=== PATIENT | male | born 1940 | race Caucasian/White ===

== ENCOUNTER 2016-08-31 10:01 | Emergency (ER) | payer MEDICARE, BC ==
--- NOTE | 2016-08-31 10:59 | ERNOTE ---
Lower Extremity HPI - Narrative Date of Service: 08/31/16 - General Lower Extremities Pain: knee: right - Patient with pain on the R knee area after a fall Time Seen by Provider: 08/31/16 10:34 Source: patient, family Exam Limitations: no limitations - Immun/Allergies/Home Medications Immunizations: IMMUNIZATION HX Immunizations Up to Date Yes History of Influenza Vaccine No Hx Pneumococcal Vaccination No Allergies/Adverse Reactions: Allergies Allergy/AdvReac Type Severity Reaction Status Date / Time No Known Allergies Allergy Verified 08/31/16 10:28 Home Medications: HOME MEDICATIONS Aspirin [Aspirin Chewable] 81 mg PO DAILY 03/08/15 [Last Taken 03/08/15] Folic Acid 1 mg PO DAILY 03/08/15 [Last Taken 03/08/15] Simvastatin [Zocor] 40 mg PO HS 03/08/15 [Last Taken 03/07/15] levETIRAcetam [Keppra] 500 mg PO BID 03/08/15 [Last Taken 03/08/15] Cholecalciferol (Vitamin D3) [Vitamin D3] 2,000 unit PO DAILY #90 capsule [Last Taken Unknown] - History of Present Illness Narrative: Patient felt due to mechanical process yesterday and hit his R side of the head and hurt his R knee area. Patient had no LOC reported at the moment and is not actively bleeding. Occurred: yesterday Location of Incident: home Method of Injury: Reports: fell, twisted. Denies: fainted Reason for Fall: Reports: tripped Loss of Consciousness: Reports: no loss of consciousness Modifying Factors - (Improves): Reports: rest Modifying Factors - (Worsens): Reports: movement Associated Symptoms: Denies: dizzy/light headedness, weakness, sensory loss, vomiting/diarrhea Other Injuries: Reports: head Subsequent Symptoms: Denies: sensory loss, numbness, motor loss, bowel/bladder problem Prior Treament: Denies: recently seen Review of Systems - Review of Systems Constitutional: Absent: fever, chills, diaphoresis, weakness, fatigue, malaise EYE: Present: no symptoms reported ENT: Present: no symptoms reported Respiratory: Absent: cough Cardiology: Absent: palpitations, syncope, edema Gastrointestinal/Abdominal: Present: no symptoms reported Genitourinary: Present: no symptoms reported Musculoskeletal: Present: muscle pain, joint pain - Patient with R knee pain Skin: Present: other - Patient reported a cut on the R eye area and a scratch on the R knee area Neurological: Absent: dizziness/light-headedness, seizure, weakness Endocrine: Present: no symptoms reported Hematologic/Lymphatic: Absent: easy bruising, easy bleeding Psych: Present: no symptoms reported - Patient's Past Medical History Patient History - Medical: Seizures Patient History - Cancer: No Hx of Cancer Patient History - Surgical Procedures: Pacemaker - Family History Father Family History - Cardiac/Respiratory: CVA/Stroke - Social History Living Situations: home Smoking Status: Current every day smoker Have you smoked in the past 12 months: Yes Alcohol Use: heavy Drug Use: none Physical Exam - Physical Exam General Appearance: Present: wd/wn, alert, no apparent distress Eye Exam: Normal inspection: bilateral, PERRL: bilateral, EOMI: bilateral Ears, Nose, Throat: Present: normal ENT inspection, hearing grossly normal Neck: Present: normal inspection, nontender Respiratory: Present: no respiratory distress, normal breath sounds, no accessory muscle use, chest nontender, lungs clear Cardiovascular/Chest: Present: regular rate, rhythm, no murmur, normal peripheral pulses Gastrointestinal/Abdominal: Present: normal bowel sounds, nontender, nondistended, soft, no organomegaly Back Exam: Present: normal inspection, normal range of motion, no CVA tenderness , no vertebral tenderness Extremity Exam: Present: no edema, normal range of motion, other - Patient with mild swelling on the R knee area. There is good pulse and ROM is preserve. There is a siple abrassion very superficial on the area. Patient with no pain on the ankle and on the hip area Neurological Exam: Present: alert, oriented, normal mood/affect, no motor/ sensory deficits Skin Exam: Present: normal color, warm/dry. Absent: cyanosis, jaundice, pallor , skin rash Lymphatic Exam: Present: no adenopathy ED Progress - Date and Time Seen: Date and Time: 08/31/16 11:42 Patient with no bleeding wounds that has been open over 12hrs. Patient with no Fx and with no intracranial pathology on CT. Patient at the moment has a GCS 15/ 15 and no gross neurologic deficit. Patient will be discharge home with OTC medications. - Vital Signs Patient's Vital Signs:: I have reviewed the patient's vital signs. Vital Signs: Vital Signs 08/31/16 10:26 Temperature 36.7 C Pulse Rate 72 Respiratory 14 Rate Blood Pressure 117/70 O2 Sat by Pulse 96 Oximetry - X-Ray X-Ray #1 X-Ray: pelvis X-ray Comments: No Fx reported by Radiologist X-Ray #2 X-Ray: knee X-ray Comments: No Fx was reported by Radiologist - CT/Ultrasound CT/Ultrasound Narrative: No acute changes were reported by Radiologist - Progress/Reassessment Chief Complaint: Lower Extremity Pain/ Injury Progress:: Re-examined - Transfer of Care Expected Disposition: Discharge Departure Clinical Impression: Abrasion Fall Qualifiers: Encounter type: initial encounter Qualified Code(s): W19.XXXA - Unspecified fall, initial encounter Head injury Qualifiers: Encounter type: initial encounter Qualified Code(s): S09.90XA - Unspecified injury of head, initial encounter Knee pain Qualifiers: Laterality: right Chronicity: acute Qualified Code(s): M25.561 - Pain in right knee - Departure Disposition: Home self-care Condition: Stable Instructions: Head Injury, Adult, [id number], Abrasion, [id number], Fall Prevention in the Home Additional Instructions: You can use Tylenol 650mg PO every 8 hours if you develop pain. Referrals: Junay Mendosa MD [Primary Care Provider] -
[2016-08-31 11:29] VITALS: BP 134/88
== END 2016-08-31 11:50 | disposition home or self-care (01) ==
LOC: ER 10:01
DX: S80.211A Abrasion, right knee, initial encounter (principal); M25.561 Pain in right knee; S09.90XA Unspecified injury of head, initial encounter; F17.210 Nicotine dependence, cigarettes, uncomplicated; Z95.0 Presence of cardiac pacemaker; R56.9 Unspecified convulsions; W01.0XXA Fall on same level from slipping, tripping and stumbling without subsequent striking against object, initial encounter; Y92.009 Unspecified place in unspecified non-institutional (private) residence as the place of occurrence of the external cause

== ENCOUNTER 2019-07-15 19:15 | Inpatient (IN) ==
--- NOTE | 2019-07-15 19:37 | ERNOTE ---
<Ren Tran - Last Filed: 07/15/19 19:45> Medical Problem HPI - Narrative Date of Service: 07/15/19 - General Chief Complaint: Fall Time Seen by Provider: 07/15/19 19:45 Source: EMS Exam Limitations: clinical condition - Immun/Allergies/Home Medications Immunizations: IMMUNIZATION HX Immunizations Up to Date Yes History of Influenza Vaccine No Hx Pneumococcal Vaccination No Allergies/Adverse Reactions: Allergies No Known Allergies Allergy (Verified 08/31/16 10:28) Home Medications: HOME MEDICATIONS Aspirin [Aspirin Chewable] 81 mg PO DAILY 03/08/15 [Last Taken 03/08/15] Cholecalciferol (Vitamin D3) [Vitamin D3] 2,000 unit PO DAILY #90 capsule 03/10/15 [Last Taken Unknown] folic acid 1 mg tablet 1 mg PO DAILY #90 tab 04/12/18 [Last Taken Unknown] levetiracetam 500 mg tablet 500 mg PO BID #180 tab 04/12/18 [Last Taken Unknown] simvastatin 40 mg tablet 40 mg PO HS #90 tab 04/23/18 [Last Taken Unknown] - History of Present History Narrative: patient presents to the ED via EMS. He is unable to provide history and no history is available otherwise, no family here. Apparently he had been lying in bed for 6 weeks in the same position. Family found him and EMS called. He will tell out in pain but otherwise cannot answer any questions. No other history can be obtained at this time Timing: unsure Modifying Factors - (Improves): Present: other - unknown Modifying Factors - (Worsens): Present: other - unknown Review of Systems - Narrative Narrative: unable to obtain, patient cannot provide d/t condition Social History: (Last Reviewed 07/15/19 @ 19:33 by Ren Tran MD) Tobacco: Smoking Status: Current every day smoker Physical Exam - Physical Exam General Appearance: Present: other - emacited, cachectic, in position. Yells out with any palpation. Head Exam: Present: no evidence of injury Eye Exam: Other: bilateral - no icterus Ears, Nose, Throat: Present: dry mucous membranes Neck: Present: other - trachea midline Respiratory: Present: no respiratory distress, other - mild tachypnea Cardiovascular/Chest: Present: tachycardia Gastrointestinal/Abdominal: Present: nondistended, other - no rigidy, difficult exam Back Exam: Present: other - no stepoffs Extremity Exam: Present: other - He has necrotic area right hip. His right arm has been in a position with skin breakdown and swelling. Redness also. Dependen areas of skin breakdown. Please refer to nursing note for full skin documantation as he has sevre changes of pressure wounds and immobility. Neurological Exam: Present: other - he sems very contracted into the position. No clear acute unilateral motor deficits but difficult exam. Skin Exam: Present: other - see above. Progress - Results and Orders Patient's Lab Results:: I have reviewed the patient's lab results. - Vital Signs Patient's Vital Signs:: I have reviewed the patient's vital signs. - Progress/Reassessment Progress Note-Subjective: 07/15/19 19:42 I saw the patient and asked nursing to notify [facility]. He has severe skin changes, confusion and immobilization. No Hx available from him and no famiy here. will initiate testing and treatment pending family arrival. No recent history available from a hospital standpoint. Turned over to Dr Goodrich at shift change with no testing returned (No labs/EKG/Images). Please see note. - Transfer of Care Physician Sign Out: Ren Tran Receiving Physician: Chato Goodrich Pending Results: Labs, X-ray results Expected Disposition: Admit Departure Clinical Impression: Confusion, Prolonged immobilization, Cachectic Pressure sore Qualifiers: Pressure injury location: contiguous region involving buttock and hip Pressure injury stage: unstageable Laterality: unspecified laterality Qualified Code(s): L89.45 - Pressure ulcer of contiguous site of back, buttock and hip, unstageable Rhabdomyolysis Qualifiers: Rhabdomyolysis type: non-traumatic Qualified Code(s): M62.82 - Rhabdomyolysis Sepsis Qualifiers: Sepsis type: sepsis due to unspecified organism Sepsis acute organ dysfunction status: with acute organ dysfunction 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 He states that approximately 6 weeks ago the patient did fall and the son has been lifting him in and out of the wheelchair and in and out of bed. The patient over this time has become more contracted in his right arm and right leg than he had been previously. This right side has been nearly unusable for him for some time but not to the degree as it has been over the last 6 weeks. Son has been rotating him from side to side mostly once or maybe twice a day. Son states there is nothing specific that worsened today but that the family had been talking about possibly hospice and instead of consulting their primary care physician which he has not seen for a couple of years they instead called EMS to bring him to the ER Timing: getting worse Severity: moderate, severe Modifying Factors - (Improves): Present: immobilization Modifying Factors - (Worsens): Present: movement Review of Systems - Review of Systems Constitutional: Absent: recent illness Respiratory: Present: cough Cardiology: Absent: chest pain Gastrointestinal/Abdominal: Present: eating less, drinking less. Absent: vomiting Musculoskeletal: Present: See HPI, joint pain Skin: Present: See HPI, change in color Neurological: Present: weakness - Right arm and right. Leg right arm has been since a nerve transposition surgery many years ago. 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 Tran's exam above. I did try to move the right hip out of the flexed and abducted position but he did seem like there was some pain to that but also would not allow movement. Right arm also abducted and internally rotated and elbow mostly flexed and he also will not allow movement of that. We tried moving and positioning to try to get some x-rays and were unable to. We will try to get a CT and see if we can get any information out of that but that exam will also be difficult. Head Exam: Present: no evidence of injury Extremity Exam: Present: other Skin Exam: Present: other Progress - Results and Orders Patient's Lab Results:: I have reviewed the patient's lab results. Results and Orders: Laboratory Tests 07/15/19 07/15/19 07/15/19 20:57 20:57 20:57 WBC 21.9 H Hgb 9.2 L Hct 29.8 L Plt Count 284 Neutrophils % 85.2 H ESR PT INR (Anticoag Therapy) D-Dimer Sodium 130 L Potassium 5.0 H Chloride 99 BUN 18 Creatinine 0.81 Random Glucose 113 H Lactic Acid, Venous 6.9 H* Calcium 8.0 Total Bilirubin 0.4 AST 51 H ALT 15 L Alkaline Phosphatase 111 Creatine Kinase 521 H Troponin I Less than 0.017 C-Reactive Prot, Quant 20.2 H Urine Color Urine Appearance Urine pH Ur Specific [place] Urine Protein Urine Glucose (UA) Urine Ketones Urine Blood Urine Nitrate Urine Bilirubin Prot Sulfosalicylic Acd Urine Urobilinogen Ur Leukocyte Esterase Urine RBC Urine WBC Ur Epithelial Cells Amorphous Sediment Urine Bacteria Urine Culture Comments 07/15/19 07/15/19 07/15/19 20:57 20:57 20:57 WBC Hgb Hct Plt Count Neutrophils % ESR 71 H PT 14.1 H INR (Anticoag Therapy) 1.44 H D-Dimer 5.85 H Sodium Potassium Chloride BUN Creatinine Random Glucose Lactic Acid, Venous Calcium Total Bilirubin AST ALT Alkaline Phosphatase Creatine Kinase Troponin I C-Reactive Prot, Quant Urine Color Urine Appearance Urine pH Ur Specific [place] Urine Protein Urine Glucose (UA) Urine Ketones Urine Blood Urine Nitrate Urine Bilirubin Prot Sulfosalicylic Acd Urine Urobilinogen Ur Leukocyte Esterase Urine RBC Urine WBC Ur Epithelial Cells Amorphous Sediment Urine Bacteria Urine Culture Comments 07/15/19 07/15/19 21:27 23:00 WBC Hgb Hct Plt Count Neutrophils % ESR PT INR (Anticoag Therapy) D-Dimer Sodium Potassium Chloride BUN Creatinine Random Glucose Lactic Acid, Venous 4.5 H* Calcium Total Bilirubin AST ALT Alkaline Phosphatase Creatine Kinase Troponin I C-Reactive Prot, Quant Urine Color Yellow Urine Appearance Slightly cloudy Urine pH 6.0 Ur Specific [place] 1.020 Urine Protein 15 H Urine Glucose (UA) Negative Urine Ketones Negative Urine Blood 50 H Urine Nitrate Negative Urine Bilirubin Negative Prot Sulfosalicylic Acd Negative Urine Urobilinogen 2.0 H Ur Leukocyte Esterase Negative Urine RBC 0-5 Urine WBC None seen Ur Epithelial Cells None seen Amorphous Sediment Few - 1+ Urine Bacteria 1+ H Urine Culture Comments Culture to follow - Vital Signs Patient's Vital Signs:: I have reviewed the patient's vital signs. Vital Signs: Vital Signs 07/15/19 19:17 Temperature 36.6 C Pulse Rate 114 H Respiratory Rate 20 Blood Pressure 124/64 O2 Sat by Pulse Oximetry 99 - CT/Ultrasound CT/Ultrasound Narrative: CT abdomen pelvis without contrast. No bony fractures noted. IMPRESSION: 1. Significantly suboptimal examination. 4 x 4.2 cm infrarenal abdominal aortic aneurysm. Please see above Electronically signed by Carlos Draper M.D.. CTA of the chest: 1. No pulmonary emboli 2. No thoracic aortic aneurysm 3. Minimal left-sided pleural fluid collection with adjacent airspace disease that may represent atelectasis or pneumonia - Progress/Reassessment Progress:: Unchanged Progress Note-Subjective: 07/15/19 23:17 I spoke with the patient's family about elevated d-dimer and my recommendation for doing a CTA. Family agrees. 07/16/19 01:[address] Duvall he agrees with admission.
[2019-07-15] MEDS ORDERED: NORMAL SALINE 1,000 ML IV ONE (19:40)
[2019-07-15] MEDS ORDERED: DIPHTH,PERTUSS(ACELL),TET VAC 0.5 ML VIAL IM ONE (19:57)
[2019-07-15 20:57] LABS: Hematocrit 29.8 % (42.0-52.0); Hemoglobin 9.2 gm/dL (13.5-18.0); Mean Cell Volume 85.1 fl (78-100); Mean Corpuscular Hemoglobin 26.3 pg (27-31); Mean Corpuscular Hgb Conc 30.9 g/dl (32-36); Mean Platelet Volume 10.4 fl (8-11.3); Neutrophil # 18.6 K/mm3 (1.3-6.0); Neutrophil % 85.2 % (42-75.0); Platelet Count 284 K/mm3 (150-450); White Blood Count 21.9 K/mm3 (4.0-10.5)
[2019-07-15 21:08] LABS: Prothrombin Time (Patient) 14.1 Seconds (9.1-10.7)
[2019-07-15 21:18] LABS: INR 1.44 INR (0.92-1.08)
[2019-07-15 21:23] LABS: ALT 15 U/L (19-67); AST 51 U/L (0-48); Albumin * 1.4 gm/dl (3.4-5.0); Alkaline Phosphatase * 111 U/L (50-170); Anion Gap 16.9 mmol/L (6.8-13.8); BUN/Creatinine Ratio 22.2 (9.0-21.6); Bilirubin, Total 0.4 mg/dL (0.0-1.1); Blood Urea Nitrogen 18 mg/dL (6-23); CK Total * 521 U/L (0-259); Ca. Corrected For Albumin 9.8 mg/dL (8.4-10.2); Carbon Dioxide 19.1 mmol/L (24-32.6); Chloride 99 mmol/L (97-106); Glucose * 113 mg/dL (70-110); Sodium 130 mmol/L (132-142); Total Protein 5.6 gm/dL (6.2-8.2)
[2019-07-15 21:24] LABS: Troponin I Less than 0.017 ng/mL (0.00-0.10)
[2019-07-15 21:32] LABS: Urine Bilirubin Negative (NEGATIVE); Urine Blood 50 /ul (NEGATIVE); Urine Ketone Negative (NEGATIVE); Urine Nitrite Negative (NEGATIVE); Urine Protein 15 mg/dL (NEGATIVE)
[2019-07-15] MEDS ORDERED: PIPERACILLIN SODIUM/TAZOBACTAM 3.375 GM in DEXTROSE 5 % IN WATER 100 ML IV ONE ×2 (21:34)
[2019-07-15 21:41] LABS: CRP 20.2 mg/dL (0.0-0.9)
[2019-07-15 21:51] LABS: Urine Amorphous Sediment Few - 1+ (NONE-FEW); Urine Appearance Slightly Cloudy (CLEAR); Urine Bacteria 1+; Urine Color Yellow; Urine RBC 0-5 /hpf (0-5); Urine WBC None Seen /hpf (0-5)
[2019-07-15] MEDS ORDERED: ONDANSETRON HCL/PF 2 MG/ML VIAL IV ONE (22:39)
[2019-07-15] MEDS ORDERED: MORPHINE SULFATE 2 MG/ML DISP.SYRIN IV ONE (22:39)
[2019-07-16] MEDS ORDERED: VANCOMYCIN HCL 1 GM in DEXTROSE 5 % IN WATER 250 ML IV ONE ×2 (01:10)
[2019-07-16] MEDS: NORMAL SALINE 1,000 ML IV PRN ×2 (08:14→16:14)
[2019-07-16] MEDS: PIPERACILLIN SODIUM/TAZOBACTAM 3.375 GM in DEXTROSE 5 % IN WATER 100 ML IV SCH ×6 (08:14→23:37)
--- NOTE | 2019-07-16 09:16 | HP ---
Chief Complaint - Chief Complaint Date of Service: 07/16/19 Time of Service: 09:05 Chief Complaint: AMS History of Present Illness: Randy Huynh is a 79-year-old white male with past medical history of hypertension, carotid artery disease, CVA, seizure disorder, hyperlipidemia, who was admitted on 07/16/2019 because of confusion. I am not able to get any history from Randy. My history is based on the emergency room physicians notes who got it from his son- "6 weeks prior to admission the patient had a fall and the son had been lifting him and in and out of his wheelchair to his bed. According to the son the right side of his body has been unusable for some time but got worse during the last weeks after his fall. The son has been rotating him from [id number] once to twice a day. Over time the right side has been more contracted in his right arm and right leg. The family has been discussing their father's care and they were thinking of hospice". I have not seen this patient since 2-1/2 years ago as he was lost to follow-up. The patient in the emergency room was found to have a flexion contracture of his right upper extremity and right lower extremity with multiple decubiti ulcers stage I to stage II and the worst one being on his right ankle which could be stage III. He a CT scan of his abdomen and pelvis showed no acute had elevated white blood cell count, CK, lactic acid, d-dimer. He was tachycardic, tachypneic, and had low blood pressures in the 90"s. He was treated as sepsis and started on IV fluids, IV Zosyn, IV vancomycin. CT scan of his abdomen showed no acute intra- abdominal findings except for an abdominal aortic aneurysm of 4.1 x [address] angiogram was done and it showed no evidence of pulmonary embolism, minimal left pleural effusion with atelectasis versus beginning pneumonia. Emergency room physician contacted [facility] for this patient. 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 Family History: Family History (Last Reviewed 07/16/19 @ 05:20 by Chato Goodrich DO) Other Unknown family medical history Social History: (Last Reviewed 07/16/19 @ 04:11 by Bria Alicea RN) Tobacco: Smoking Status: Current every day smoker Immunizations: IMMUNIZATION HX Immunizations Up to Date Yes History of Influenza Vaccine No Hx Pneumococcal Vaccination No Allergies/Adverse Reactions: Allergies Allergy/AdvReac Type Severity Reaction Status Date / Time No Known Allergies Allergy Verified 08/31/16 10:28 Home Medications: HOME MEDICATIONS NK 07/16/19 [Last Taken Unknown] Exam - Exam Vital Signs: Vital Signs - Last Taken Temp 36.5 C 07/16/19 07:13 Pulse 78 07/16/19 07:13 Resp 12 07/16/19 07:13 BP 103/53 07/16/19 07:13 Pulse Ox 97 07/16/19 07:13 Constitutional: Present: Alert - AAO x 1, Mild distress, Thin and frail ENT Exam: Present: hearing grossly normal Eye Exam: bilateral eye: normal inspection, PERRL, EOMI Neck: Present: limited range of motion Respiratory: Present: decreased breath sounds Cardiovascular/Chest: Present: regular rate, rhythm, no JVD, no murmur Abdomen: Present: Normal bowel sounds, soft, nontender, nondistended Extremity: Present: other - edema, right hand, flexion contracture RUE/RLE, minimal flexion , L knee joint, moves LUE/LLE slighty Neurologic: Present: other - AAO x 1, could not asses neurological status Diagnostic Studies: Abnormal Lab Results 07/15/19 07/15/19 07/15/19 Range/Units 20:57 20:57 20:57 WBC 21.9 H (4.0-10.5) K/mm3 RBC 3.50 L (4.7-6.0) M/mm3 Hgb 9.2 L (13.5-18.0) gm/dL Hct 29.8 L (42.0-52.0) % MCH 26.3 L (27-31) pg MCHC 30.9 L (32-36) g/dl RDW 16.0 H (11.5-14.0) % Immature Gran % (Auto) 0.60 H (0.001-0.429) % Immature Gran # (Auto) 0.14 H (0.000-0.0310) K/mm3 Neutrophils % 85.2 H (42-75.0) % Lymphocytes % 9.3 L (20-51) % Neutrophils # 18.6 H (1.3-6.0) K/mm3 ESR (0-10) mm/hr PT (9.1-10.7) Seconds INR (Anticoag Therapy) (0.92-1.08) INR D-Dimer (0.19-0.49) ug/mL Sodium 130 L (132-142) mmol/L Potassium 5.0 H (3.4-4.6) mmol/L Carbon Dioxide 19.1 L (24-32.6) mmol/L Anion Gap 16.9 H (6.8-13.8) mmol/L BUN/Creatinine Ratio 22.2 H (9.0-21.6) Random Glucose 113 H (70-110) mg/dL Lactic Acid, Venous 6.9 H* (0.4-2.0) mmol/L AST 51 H (0-48) U/L ALT 15 L (19-67) U/L Creatine Kinase 521 H (0-259) U/L C-Reactive Prot, Quant 20.2 H (0.0-0.9) mg/dL Total Protein 5.6 L (6.2-8.2) gm/dL Albumin 1.4 L (3.4-5.0) gm/dl Urine Protein (NEGATIVE) mg/dL Urine Blood (NEGATIVE) /ul Urine Urobilinogen (NORMAL) EU/dl Urine Bacteria (NONE) 07/15/19 07/15/19 07/15/19 Range/Units 20:57 20:57 20:57 WBC (4.0-10.5) K/mm3 RBC (4.7-6.0) M/mm3 Hgb (13.5-18.0) gm/dL Hct (42.0-52.0) % MCH (27-31) pg MCHC (32-36) g/dl RDW (11.5-14.0) % Immature Gran % (Auto) (0.001-0.429) % Immature Gran # (Auto) (0.000-0.0310) K/mm3 Neutrophils % (42-75.0) % Lymphocytes % (20-51) % Neutrophils # (1.3-6.0) K/mm3 ESR 71 H (0-10) mm/hr PT 14.1 H (9.1-10.7) Seconds INR (Anticoag Therapy) 1.44 H (0.92-1.08) INR D-Dimer 5.85 H (0.19-0.49) ug/mL Sodium (132-142) mmol/L Potassium (3.4-4.6) mmol/L Carbon Dioxide (24-32.6) mmol/L Anion Gap (6.8-13.8) mmol/L BUN/Creatinine Ratio (9.0-21.6) Random Glucose (70-110) mg/dL Lactic Acid, Venous (0.4-2.0) mmol/L AST (0-48) U/L ALT (19-67) U/L Creatine Kinase (0-259) U/L C-Reactive Prot, Quant (0.0-0.9) mg/dL Total Protein (6.2-8.2) gm/dL Albumin (3.4-5.0) gm/dl Urine Protein (NEGATIVE) mg/dL Urine Blood (NEGATIVE) /ul Urine Urobilinogen (NORMAL) EU/dl Urine Bacteria (NONE) 07/15/19 07/15/19 Range/Units 21:27 23:00 WBC (4.0-10.5) K/mm3 RBC (4.7-6.0) M/mm3 Hgb (13.5-18.0) gm/dL Hct (42.0-52.0) % MCH (27-31) pg MCHC (32-36) g/dl RDW (11.5-14.0) % Immature Gran % (Auto) (0.001-0.429) % Immature Gran # (Auto) (0.000-0.0310) K/mm3 Neutrophils % (42-75.0) % Lymphocytes % (20-51) % Neutrophils # (1.3-6.0) K/mm3 ESR (0-10) mm/hr PT (9.1-10.7) Seconds INR (Anticoag Therapy) (0.92-1.08) INR D-Dimer (0.19-0.49) ug/mL Sodium (132-142) mmol/L Potassium (3.4-4.6) mmol/L Carbon Dioxide (24-32.6) mmol/L Anion Gap (6.8-13.8) mmol/L BUN/Creatinine Ratio (9.0-21.6) Random Glucose (70-110) mg/dL Lactic Acid, Venous 4.5 H* (0.4-2.0) mmol/L AST (0-48) U/L ALT (19-67) U/L Creatine Kinase (0-259) U/L C-Reactive Prot, Quant (0.0-0.9) mg/dL Total Protein (6.2-8.2) gm/dL Albumin (3.4-5.0) gm/dl Urine Protein 15 H (NEGATIVE) mg/dL Urine Blood 50 H (NEGATIVE) /ul Urine Urobilinogen 2.0 H (NORMAL) EU/dl Urine Bacteria 1+ H (NONE) Microbiology 07/15/19 21:20 Urine Culture - Preliminary Urine,Catheterized No Growth Laboratory Results WBC 21.9 K/mm3 (4.0-10.5) H 07/15/19 20:57 RBC 3.50 M/mm3 (4.7-6.0) L 07/15/19 20:57 Hgb 9.2 gm/dL (13.5-18.0) L 07/15/19 20:57 Hct 29.8 % (42.0-52.0) L 07/15/19 20:57 MCV 85.1 fl (78-100) 07/15/19 20:57 MCH 26.3 pg (27-31) L 07/15/19 20:57 MCHC 30.9 g/dl (32-36) L 07/15/19 20:57 RDW 16.0 % (11.5-14.0) H 07/15/19 20:57 Plt Count 284 K/mm3 (150-450) 07/15/19 20:57 MPV 10.4 fl (8-11.3) 07/15/19 20:57 Immature Gran % (Auto) 0.60 % (0.001-0.429) H 07/15/19 20:57 Immature Gran # (Auto) 0.14 K/mm3 (0.000-0.0310) H 07/15/19 20:57 Neutrophils % 85.2 % (42-75.0) H 07/15/19 20:57 Lymphocytes % 9.3 % (20-51) L 07/15/19 20:57 Monocytes % 4.6 % (0.0-9) 07/15/19 20:57 Eosinophils % 0.1 % (0.0-3.0) 07/15/19 20:57 Basophils % 0.2 % (0.0-1.0) 07/15/19 20:57 Nucleated RBC % 0.0 k/mm3 (0-1) 07/15/19 20:57 Neutrophils # 18.6 K/mm3 (1.3-6.0) H 07/15/19 20:57 Lymphocytes # 2.03 k/mm3 (1.5-3.5) 07/15/19 20:57 Monocytes # 1.0 k/mm3 (0.0-1.0) 07/15/19 20:57 Eosinophils # 0.0 k/mm3 (0.0-0.7) 07/15/19 20:57 Absolute Basophils 0.0 k/mm3 (0.0-0.1) 07/15/19 20:57 ESR 71 mm/hr (0-10) H 07/15/19 20:57 PT 14.1 Seconds (9.1-10.7) H 07/15/19 20:57 INR (Anticoag Therapy) 1.44 INR (0.92-1.08) H 07/15/19 20:57 D-Dimer 5.85 ug/mL (0.19-0.49) H 07/15/19 20:57 Sodium 130 mmol/L (132-142) L 07/15/19 20:57 Plasma Sodium 130 mmol/L (130-142) 07/15/19 20:57 Potassium 5.0 mmol/L (3.4-4.6) H 07/15/19 20:57 Chloride 99 mmol/L (97-106) 07/15/19 20:57 Carbon Dioxide 19.1 mmol/L (24-32.6) L 07/15/19 20:57 Anion Gap 16.9 mmol/L (6.8-13.8) H 07/15/19 20:57 BUN 18 mg/dL (6-23) 07/15/19 20:57 Creatinine 0.85 mg/dL (0.4-1.4) 07/16/19 07:00 Est GFR (Non-Af Amer) 98 mL/min (60-130) D 07/15/19 20:57 BUN/Creatinine Ratio 22.2 (9.0-21.6) H 07/15/19 20:57 Random Glucose 113 mg/dL (70-110) H 07/15/19 20:57 Lactic Acid, Venous 1.8 mmol/L (0.4-2.0) 07/16/19 07:58 Calcium 8.0 mg/dL (7.9-10.9) 07/15/19 20:57 Calcium Adj for Albumin 9.8 mg/dL (8.4-10.2) 07/15/19 20:57 Total Bilirubin 0.4 mg/dL (0.0-1.1) 07/15/19 20:57 AST 51 U/L (0-48) H 07/15/19 20:57 ALT 15 U/L (19-67) L 07/15/19 20:57 Alkaline Phosphatase 111 U/L (50-170) 07/15/19 20:57 Creatine Kinase 521 U/L (0-259) H 07/15/19 20:57 Troponin I Less than 0.017 ng/mL (0.00-0.10) 07/15/19 20:57 C-Reactive Prot, Quant 20.2 mg/dL (0.0-0.9) H 07/15/19 20:57 Total Protein 5.6 gm/dL (6.2-8.2) L 07/15/19 20:57 Albumin 1.4 gm/dl (3.4-5.0) L 07/15/19 20:57 Urine Color Yellow 07/15/19 21:27 Urine Appearance Slightly cloudy (CLEAR) 07/15/19 21: Urine pH 6.0 pH (5.0-7.0) 07/15/19 21:27 Ur Specific [place] 1.020 SP.GR. (1.005-1.030) 07/15/19 21:27 Urine Protein 15 mg/dL (NEGATIVE) H 07/15/19 21:27 Urine Glucose (UA) Negative mg/dL (NEGATIVE) 07/15/19 21: Urine Ketones Negative mg/dL (NEGATIVE) 07/15/19 21: Urine Blood 50 /ul (NEGATIVE) H 07/15/19 21: Urine Nitrate Negative (NEGATIVE) 07/15/19 21: Urine Bilirubin Negative mg/dl (NEGATIVE) 07/15/19 21: Prot Sulfosalicylic Acd Negative mg/dL (0) 07/15/19 21: Urine Urobilinogen 2.0 EU/dl (NORMAL) H 07/15/19 21:27 Ur Leukocyte Esterase Negative /ul (NEGATIVE) 07/15/19 21: Urine RBC 0-5 /hpf (0-5) 07/15/19 21: Urine WBC None seen /hpf (0-5) 07/15/19 21: Ur Epithelial Cells None seen /hpf (0-5) 07/15/19 21: Amorphous Sediment Few - 1+ (NONE-FEW) 07/15/19 21: Urine Bacteria 1+ (NONE) H 07/15/19 21: Urine Culture Comments Culture to follow 07/15/19 21: Assessment/Plan - Narrative Narrative: Randy Cuellar is a 79-year-old male who has been lost to follow-up for 2-1/2 years who was admitted for altered mental status, recent fall, flexion contracture of the right upper extremity and right lower extremity, sepsis, likely source is beginning pneumonia on CT scan, rhabdomyolysis, hyperkalemia, leukocytosis, multiple pressure sores. Patient does have a history of cerebrovascular accident without marilu-residual deficits, carotid artery disease, seizure disorder. He likely had another CVA 6 weeks ago which made him fall down. It is unsure whether his flexion contractures of his right upper extremity and right lower extremity are due to spastic hemiparesis/plegia or secondary to trauma from the fall causing musculoskeletal injury or sympathetic reflex dystrophy. We will get minimal x-rays of his joints to give us some information. His source of his infection likely is either due to developing pneumonia or due to his multiple pressure ulcers from his prolonged immobility and being bedridden. We will continue with IV Zosyn as well as IV vancomycin. We will continue with the patient's IV fluid for his elevated CK and sepsis. We will get PT/OT evaluation and treatment when he is more stable. Consider doing head CT scan without contrast for now. - Assessment/Plan (1) AMS (altered mental status) Problem: Acute (2) SIRS (systemic inflammatory response syndrome) Problem: Acute (3) Sepsis Problem: Acute Qualifiers: Sepsis type: sepsis due to unspecified organism Sepsis acute organ dysfunction status: with acute organ dysfunction Severe sepsis acute organ dysfunction type: critical illness myopathy Severe sepsis shock status: without septic shock Qualified Code(s): A41.9 - Sepsis, unspecified organism; R65.20 - Severe sepsis without septic shock; G72.81 - Critical illness myopathy (4) Pneumonia Problem: Acute (5) Prolonged immobilization Problem: Acute (6) Cachectic Problem: Acute (7) Pressure sore Problem: Acute Qualifiers: Pressure injury location: contiguous region involving buttock and hip Pressure injury stage: unstageable Laterality: unspecified laterality Qualified Code(s): L89.45 - Pressure ulcer of contiguous site of back, buttock and hip, unstageable (8) Rhabdomyolysis Problem: Suspected Qualifiers: Rhabdomyolysis type: non-traumatic Qualified Code(s): M62.82 - Rhabdomyolysis (9) History of CVA (cerebrovascular accident) without residual deficits Problem: Acute (10) Seizure disorder Problem: Acute (11) Hypertension Problem: Acute (12) Hyperlipidemia Problem: Acute (13) Carotid artery disease Problem: Acute (14) Abdominal aortic aneurysm (AAA) Problem: Acute Qualifiers: Presence of rupture: without rupture Qualified Code(s): I71.4 - Abdominal aortic aneurysm, without rupture (15) Lactic acidosis Problem: Resolved (16) Failure to thrive Problem: Suspected
[2019-07-16] MEDS: MORPHINE SULFATE 2 MG/ML DISP.SYRIN IV PRN (09:48)
--- NOTE | 2019-07-16 15:20 | CONS ---
[facility] - General Date of Service: 07/16/19 Source: family - History of Present Illness Initial Comments: Patient is a 79 year old male, recently admitted to the hospital regarding altered mental status, sepsis, pneumonia, cachectic, pressure ulcer, rhabdomyo lysis and lactic acidosis. The patient is lethargic, his eyes are open, however he does not answer questions. His son is present to provide limited history regarding the various ulcers. He states that the areas on bilateral hips started approximately 4-5 weeks ago, after a fall at home. The son states that his father was not mobile after that time, and he has been "turning" him several times per day. The son does not elaborate regarding the additional ulcers. Current treatment of the areas is unclear. The patient's medical history consists of carotid artery disease, abdominal aortic aneurysm, hyperlipidemia, hypertension, seizure disorder and CVA. Timing/Duration: unsure, getting worse Allergies/Adverse Reactions: Allergies No Known Allergies Allergy (Verified 08/31/16 10:28) Home Medications: Home Medications Medication Instructions Recorded Last Taken NK 07/16/19 Unknown Procedures Closure of skin and subcutaneous tissue of other sites (12/13/14) Medications - Medications Current Medications: Current Medications Piperacillin Sod/Tazobactam (Sod 3.375 gm/ Dextrose/Water) 100 mls @ 25 mls/hr IV Q8H [facility]; Protocol Stop: 08/15/19 07:46 Last Infusion: 07/16/19 12:15 Dose: Infused Documented by: Sodium Chloride (Sodium Chloride 0.9%) 1,000 mls @ 126 mls/hr IV .[id number] PRN PRN Reason: HYDRATION Stop: 08/15/19 07:39 Last Admin: 07/16/19 08:14 Dose: 126 mls/hr Documented by: Morphine Sulfate (Morphine Sulfate) 1 mg IV Q4H PRN PRN Reason: Moderate Pain (pain scale 4-6) Stop: 08/15/19 09:31 Last Admin: 07/16/19 09:48 Dose: 1 mg Documented by: Review of Systems - Review of Systems Narrative: Unable to obtain due to patient condition Physical Examination - Exam Vital Signs: Vital Signs - Last Taken Temp 35.9 C L 07/16/19 14:00 Pulse 77 07/16/19 14:00 Resp 12 07/16/19 14:00 BP 93/47 07/16/19 14:00 Pulse Ox 93 07/16/19 14:00 O2 Oxygen Delivery Method Room Air Constitutional: Present: Lethargic, Elderly, Thin and frail Respiratory: Present: no respiratory distress Cardiovascular/Chest: Present: no edema Extremity: Present: other - Flexion contracture of the right upper and lower extremity Skin Exam: Present: cool/dry, other - Multiple various stages ulcers to the right lower leg and groin area. There is an area on the right anterior tibia measuring approximately 7 cm in length that is fully exposed bone, with no tissue present. The areas on bilateral hips are black and necrotic, with moderate drainage. There are several ulcers in the groin region, with the moderate drainage. Please refer to nursing documentation for exact measurements of all ulcers. The right forearm is edematous, red and weeping. The skin is sloughing off in several areas. Appearance: Present: other - Poor personal hygiene - Results and Findings: Lab/Microbiology results last 24 hrs: Abnormal/Pending Laboratory Last 24 HRS 07/15/19 07/15/19 07/15/19 23:00 21:27 20:57 WBC RBC Hgb Hct MCH MCHC RDW Immature Gran % (Auto) Immature Gran # (Auto) Neutrophils % Lymphocytes % Neutrophils # ESR PT INR (Anticoag Therapy) D-Dimer 5.85 H Sodium Potassium Carbon Dioxide Anion Gap BUN/Creatinine Ratio Random Glucose Lactic Acid, Venous 4.5 H* AST ALT Creatine Kinase C-Reactive Prot, Quant Total Protein Albumin Urine Protein 15 H Urine Blood 50 H Urine Urobilinogen 2.0 H Urine Bacteria 1+ H 07/15/19 07/15/19 07/15/19 20:57 20:57 20:57 WBC RBC Hgb Hct MCH MCHC RDW Immature Gran % (Auto) Immature Gran # (Auto) Neutrophils % Lymphocytes % Neutrophils # ESR 71 H PT 14.1 H INR (Anticoag Therapy) 1.44 H D-Dimer Sodium Potassium Carbon Dioxide Anion Gap BUN/Creatinine Ratio Random Glucose Lactic Acid, Venous 6.9 H* AST ALT Creatine Kinase C-Reactive Prot, Quant Total Protein Albumin Urine Protein Urine Blood Urine Urobilinogen Urine Bacteria 07/15/19 07/15/19 20:57 20:57 WBC 21.9 H RBC 3.50 L Hgb 9.2 L Hct 29.8 L MCH 26.3 L MCHC 30.9 L RDW 16.0 H Immature Gran % (Auto) 0.60 H Immature Gran # (Auto) 0.14 H Neutrophils % 85.2 H Lymphocytes % 9.3 L Neutrophils # 18.6 H ESR PT INR (Anticoag Therapy) D-Dimer Sodium 130 L Potassium 5.0 H Carbon Dioxide 19.1 L Anion Gap 16.9 H BUN/Creatinine Ratio 22.2 H Random Glucose 113 H Lactic Acid, Venous AST 51 H ALT 15 L Creatine Kinase 521 H C-Reactive Prot, Quant 20.2 H Total Protein 5.6 L Albumin 1.4 L Urine Protein Urine Blood Urine Urobilinogen Urine Bacteria Culture 07/15/19 21:20 Urine Culture - Preliminary Urine,Catheterized No Growth - Assessments/Findings (1) Pressure sore Diagnosis(s): The patient has multiple concerns regarding ulcers of the lower extremity and right forearm. Recommend dressings to include Santyl applied to the right and left hip as well as the multiple ulcers on the right foot. This will be covered with gauze and secured with tape. Recommend using a mepelex border to the right anterior tibia where the bone is exposed, to protect the area. Recommend Aquacel AG to the right forearm and groin ulcers. This will be covered with gauze and secured with tape. All dressings will be changed daily, and as needed per drainage. There should be washed with thoroughly with soap and water at dressing changes. Problem: Acute Qualifiers: Pressure injury location: contiguous region involving buttock and hip Pressure injury stage: unstageable Laterality: unspecified laterality Qualified Code(s): L89.45 - Pressure ulcer of contiguous site of back, buttock and hip, unstageable
[2019-07-16] MEDS: COLLAGENASE CLOSTRIDIUM HIST. 30 APPL TUBE TP SCH (16:13)
[2019-07-16] MEDS: ENOXAPARIN SODIUM 40 MG/0.4 ML SYRG SC SCH (18:56)
[2019-07-17] MEDS ORDERED: VANCOMYCIN HCL 1 GM in DEXTROSE 5 % IN WATER 250 ML IV SCH ×2 (01:00)
[2019-07-17] MEDS: NORMAL SALINE 1,000 ML IV PRN ×3 (01:39→20:07)
[2019-07-17] MEDS: VANCOMYCIN HCL 1 GM in DEXTROSE 5 % IN WATER 250 ML IV SCH ×2 (03:59)
[2019-07-17] MEDS: PIPERACILLIN SODIUM/TAZOBACTAM 3.375 GM in DEXTROSE 5 % IN WATER 100 ML IV SCH ×6 (08:01→23:46)
[2019-07-17 08:42] LABS: Hematocrit 28.6 % (42.0-52.0); Hemoglobin 8.9 gm/dL (13.5-18.0); Mean Cell Volume 83.6 fl (78-100); Mean Corpuscular Hgb Conc 31.1 g/dl (32-36); Mean Platelet Volume 10.2 fl (8-11.3); Neutrophil # 12.1 K/mm3 (1.3-6.0); Neutrophil % 85.4 % (42-75.0); Platelet Count 326 K/mm3 (150-450); Red Blood Count 3.42 M/mm3 (4.7-6.0); Red Cell Distribution Width 15.6 % (11.5-14.0); White Blood Count 14.2 K/mm3 (4.0-10.5)
[2019-07-17 08:50] LABS: Anion Gap 10.1 mmol/L (6.8-13.8); BUN/Creatinine Ratio 18.5 (9.0-21.6); Calcium * 7.6 mg/dL (7.9-10.9); Carbon Dioxide 23.5 mmol/L (24-32.6); Estimated Creat Clear 66.7; Potassium 3.6 mmol/L (3.4-4.6)
[2019-07-17] MEDS: MORPHINE SULFATE 2 MG/ML DISP.SYRIN IV PRN (09:00)
--- NOTE | 2019-07-17 09:39 | PN ---
Subjective - Date and Time Seen Date: 07/17/19 Time: 10:06 Subjective Narrative: patient is AAo x 1. per student nurse he did say hello to her this morning otherwise most of the time it is just eye contact. Objective - Review of Systems Misc: All systems neg except as marked - unobtainable due to AMS - Vitals Vitals: Last Vital Signs Temp 36.5 C 07/17/19 06:41 Pulse 78 07/17/19 07:00 Resp 18 07/17/19 06:41 BP 107/60 07/17/19 06:41 Pulse Ox 97 07/17/19 06:41 - Abnormal Lab Findings Abnormal Lab Findings: Abnormal Lab Results 07/17/19 07/17/19 Range/Units 08:15 08:15 WBC 14.2 H D (4.0-10.5) K/mm3 RBC 3.42 L (4.7-6.0) M/mm3 Hgb 8.9 L (13.5-18.0) gm/dL Hct 28.6 L (42.0-52.0) % MCH 26.0 L (27-31) pg MCHC 31.1 L (32-36) g/dl RDW 15.6 H (11.5-14.0) % Immature Gran % (Auto) 0.60 H (0.001-0.429) % Immature Gran # (Auto) 0.09 H (0.000-0.0310) K/mm3 Neutrophils % 85.4 H (42-75.0) % Lymphocytes % 9.9 L (20-51) % Neutrophils # 12.1 H (1.3-6.0) K/mm3 Lymphocytes # 1.40 L (1.5-3.5) k/mm3 Carbon Dioxide 23.5 L (24-32.6) mmol/L Calcium 7.6 L (7.9-10.9) mg/dL - Exam Constitutional: Present: Alert - AAO x 1 ENT Exam: Present: hard of hearing Neck: Present: supple. Absent: lymphadenopathy (R), lymphadenopathy (L) Respiratory: Present: decreased breath sounds, No rales, No wheezing Cardiovascular/Chest: Present: regular rate, rhythm, no JVD, no murmur Abdomen: Present: Normal bowel sounds, soft, nontender, nondistended Extremity: Present: pedal edema, other - flexion contracture, RUE/RLE Cauti Physician Documentation - Urinary Catheter Management Urethral (Daily) Date of Insertion: 07/15/19 Time of Insertion: 21:25 Assessment/Plan Plan Narrative: Randy Cuellar was admitted for altered mental status, likely due to toxic/metabolic encephalopathy, from sepsis, pneumonia on CT scan, multiple decubiti ulcers, severe malnutrition, failure to thrive, flexion contractures of the right upper extremity and right lower extremity likely due to fall from an acute CVA 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 I discussed the case with his daughter yesterday and she is going to arrange her family to be together to talk to hospice today. She will have her brother who has the power of health care attorney present. She does not feel that they will be aggressive with finding what the cause is of his contractures or physical therapy/occupational therapy and would just want comfort care. In the meantime we will continue with his IV antibiotics and IV fluids. His wound cultures and urine culture are growing Gram negative bacilli, BC - NG. - Problems/Diagnosis (1) AMS (altered mental status) Problem: Acute (2) SIRS (systemic inflammatory response syndrome) Problem: Acute (3) Sepsis Problem: Acute Qualifiers: Sepsis type: sepsis due to unspecified organism Sepsis acute organ dysfunction status: with acute organ dysfunction Severe sepsis acute organ dysfunction type: encephalopathy Severe sepsis shock status: without septic shock Qualified Code(s): A41.9 - Sepsis, unspecified organism; R65.20 - Severe sepsis without septic shock; G93.40 - Encephalopathy, unspecified (4) Pneumonia Problem: Acute (5) Prolonged immobilization Problem: Acute (6) Cachectic Problem: Acute (7) Pressure sore Problem: Acute Qualifiers: Pressure injury location: contiguous region involving buttock and hip Pressure injury stage: unstageable Laterality: unspecified laterality Qualified Code(s): L89.45 - Pressure ulcer of contiguous site of back, buttock and hip, unstageable (8) Rhabdomyolysis Problem: Ruled-out Qualifiers: Rhabdomyolysis type: non-traumatic Qualified Code(s): M62.82 - Rhabdomyolysis Narrative: CK back to normal. rhabdomyolysis ruled out, due to less than 5 x the ULN. (9) History of CVA (cerebrovascular accident) without residual deficits Problem: Chronic (10) Seizure disorder Problem: Chronic (11) Hypertension Problem: Chronic (12) Hyperlipidemia Problem: Chronic (13) Carotid artery disease Problem: Chronic Qualifiers: Carotid artery disease type: stenosis Laterality: left Qualified Code(s): I65.22 - Occlusion and stenosis of left carotid artery (14) Abdominal aortic aneurysm (AAA) Problem: Acute Qualifiers: Presence of rupture: without rupture Qualified Code(s): I71.4 - Abdominal aortic aneurysm, without rupture (15) Lactic acidosis Problem: Resolved (16) Failure to thrive Problem: Suspected (17) Acute metabolic encephalopathy Problem: Acute (18) Malnutrition Problem: Acute Qualifiers: Malnutrition type: protein-calorie malnutrition Protein-calorie malnutrition severity: severe Qualified Code(s): E43 - Unspecified severe protein-calorie malnutrition
[2019-07-17] MEDS: COLLAGENASE CLOSTRIDIUM HIST. 30 APPL TUBE TP SCH (10:11)
--- NOTE | 2019-07-17 13:12 | PN ---
Subjective - Date and Time Seen Date: 07/17/19 Subjective Narrative: Patient appears to be feeling better today. He does not answer questions. It appears he is tolerating all treatments well. The wound dressings have been changed and the areas washed with soap and water, as directed. There have been no additional ulcers noted. Objective Objective Narrative: Patient is alert. Oriented to himself, makes eye contact, however does not answer questions. He winches with any movement. - Vitals Vitals: Last Vital Signs Temp 37.1 C 07/17/19 11:42 Pulse 73 07/17/19 11:42 Resp 18 07/17/19 11:42 BP 98/56 07/17/19 11:42 Pulse Ox 98 07/17/19 11:42 - Abnormal Lab Findings Abnormal Lab Findings: Abnormal Lab Results 07/17/19 07/17/19 Range/Units 08:15 08:15 WBC 14.2 H D (4.0-10.5) K/mm3 RBC 3.42 L (4.7-6.0) M/mm3 Hgb 8.9 L (13.5-18.0) gm/dL Hct 28.6 L (42.0-52.0) % MCH 26.0 L (27-31) pg MCHC 31.1 L (32-36) g/dl RDW 15.6 H (11.5-14.0) % Immature Gran % (Auto) 0.60 H (0.001-0.429) % Immature Gran # (Auto) 0.09 H (0.000-0.0310) K/mm3 Neutrophils % 85.4 H (42-75.0) % Lymphocytes % 9.9 L (20-51) % Neutrophils # 12.1 H (1.3-6.0) K/mm3 Lymphocytes # 1.40 L (1.5-3.5) k/mm3 Carbon Dioxide 23.5 L (24-32.6) mmol/L Calcium 7.6 L (7.9-10.9) mg/dL - Exam Skin Exam: Present: other - all ulcers are draining. thick, black necrosis present to bilateral hips. Cauti Physician Documentation - Urinary Catheter Management Urethral (Daily) Date of Insertion: 07/15/19 Time of Insertion: 21:25 Assessment/Plan - Problems/Diagnosis (1) Pressure sore Problem: Acute Qualifiers: Pressure injury location: contiguous region involving buttock and hip Pressure injury stage: unstageable Laterality: unspecified laterality Qualified Code(s): L89.45 - Pressure ulcer of contiguous site of back, buttock and hip, unstageable Narrative: Due to the black necrosis on the left hip, decision was made for debridement. No topical lidocaine was needed. A scalpel was used to remove the dry, black necrotic tissue. Patient tolerated the procedure well. A moderate amount of drainage and yellow necrosis remains. Recommend using Aquacel Ag to this area, covered with gauze and secured with tape. The dressing will be changed daily, and the area washed with soap and water at dressing changes.
[2019-07-17] MEDS: ENOXAPARIN SODIUM 40 MG/0.4 ML SYRG SC SCH (17:20)
[2019-07-18] MEDS: MORPHINE SULFATE 2 MG/ML DISP.SYRIN IV PRN (02:16)
[2019-07-18] MEDS: VANCOMYCIN HCL 1 GM in DEXTROSE 5 % IN WATER 250 ML IV SCH ×2 (03:45)
[2019-07-18] MEDS: NORMAL SALINE 1,000 ML IV PRN (03:46)
[2019-07-18] MEDS: PIPERACILLIN SODIUM/TAZOBACTAM 3.375 GM in DEXTROSE 5 % IN WATER 100 ML IV SCH ×2 (07:27)
--- NOTE | 2019-07-18 08:41 | PN ---
Subjective - Date and Time Seen Date: 07/18/19 Time: 08:36 Subjective Narrative: patient continues to be nonconversant. just looks at you when you talk to him. family has made him hospice and comfort care only. Objective - Review of Systems Misc: All systems neg except as marked - unobtainable due to AMS - Vitals Vitals: Last Vital Signs Temp 37.2 C 07/18/19 06:35 Pulse 84 07/18/19 06:35 Resp 16 07/18/19 06:35 BP 94/49 07/18/19 06:35 Pulse Ox 96 07/18/19 06:35 - Abnormal Lab Findings Abnormal Lab Findings: Abnormal Lab Results 07/17/19 07/17/19 Range/Units 08:15 08:15 WBC 14.2 H D (4.0-10.5) K/mm3 RBC 3.42 L (4.7-6.0) M/mm3 Hgb 8.9 L (13.5-18.0) gm/dL Hct 28.6 L (42.0-52.0) % MCH 26.0 L (27-31) pg MCHC 31.1 L (32-36) g/dl RDW 15.6 H (11.5-14.0) % Immature Gran % (Auto) 0.60 H (0.001-0.429) % Immature Gran # (Auto) 0.09 H (0.000-0.0310) K/mm3 Neutrophils % 85.4 H (42-75.0) % Lymphocytes % 9.9 L (20-51) % Neutrophils # 12.1 H (1.3-6.0) K/mm3 Lymphocytes # 1.40 L (1.5-3.5) k/mm3 Carbon Dioxide 23.5 L (24-32.6) mmol/L Calcium 7.6 L (7.9-10.9) mg/dL - Exam Constitutional: Present: Alert, Elderly, Thin and frail ENT Exam: Present: hearing grossly normal Neck: Present: supple. Absent: lymphadenopathy (R), lymphadenopathy (L) Respiratory: Present: decreased breath sounds, No rales, No wheezing, other - positve pacemaker on left chest area Cardiovascular/Chest: Present: regular rate, rhythm, no JVD, no murmur Abdomen: Present: Normal bowel sounds, soft, nontender, nondistended Extremity: Present: no calf tenderness, other - flexion contracture RUE/RLE Skin Exam: Present: other - multiple decubiti ulcers Cauti Physician Documentation - Urinary Catheter Management Urethral (Daily) Date of Insertion: 07/15/19 Time of Insertion: 21:25 Assessment/Plan Plan Narrative: Randy Cuellar is a 79-year-old white male admitted with altered mental status, sepsis, pneumonia, multiple decubiti ulcers, flexion contraction of her right upper and right lower extremities, severe malnutrition, failure to thrive. The family has decided to make him hospice care and just do comfort measures. We will discontinue his IV antibiotics and start him on comfort care medications. - Problems/Diagnosis (1) AMS (altered mental status) Problem: Acute (2) SIRS (systemic inflammatory response syndrome) Problem: Acute (3) Sepsis Problem: Acute Qualifiers: Sepsis type: sepsis due to unspecified organism Sepsis acute organ dysfunction status: with acute organ dysfunction Severe sepsis acute organ dysfunction type: encephalopathy Severe sepsis shock status: without septic shock Qualified Code(s): A41.9 - Sepsis, unspecified organism; R65.20 - Severe sepsis without septic shock; G93.40 - Encephalopathy, unspecified (4) Pneumonia Problem: Acute (5) Prolonged immobilization Problem: Acute (6) Cachectic Problem: Acute (7) Pressure sore Problem: Acute Qualifiers: Pressure injury location: contiguous region involving buttock and hip Pres sure injury stage: unstageable Laterality: unspecified laterality Qualified Code(s): L89.45 - Pressure ulcer of contiguous site of back, buttock and hip, unstageable (8) Rhabdomyolysis Problem: Ruled-out Qualifiers: Rhabdomyolysis type: non-traumatic Qualified Code(s): M62.82 - Rhabdomyolysis (9) History of CVA (cerebrovascular accident) without residual deficits Problem: Chronic (10) Seizure disorder Problem: Chronic (11) Hypertension Problem: Chronic (12) Hyperlipidemia Problem: Chronic (13) Carotid artery disease Problem: Chronic Qualifiers: Carotid artery disease type: stenosis Laterality: left Qualified Code(s): I65.22 - Occlusion and stenosis of left carotid artery (14) Abdominal aortic aneurysm (AAA) Problem: Acute Qualifiers: Presence of rupture: without rupture Qualified Code(s): I71.4 - Abdominal aortic aneurysm, without rupture (15) Lactic acidosis Problem: Resolved (16) Failure to thrive Problem: Suspected (17) Acute metabolic encephalopathy Problem: Acute (18) Malnutrition Problem: Acute Qualifiers: Malnutrition type: protein-calorie malnutrition Protein-calorie malnutrition severity: severe Qualified Code(s): E43 - Unspecified severe protein-calorie malnutrition
[2019-07-18] MEDS ORDERED: MORPHINE SULFATE 10 MG/0.5 ML SYRINGE PO PRN (09:00)
[2019-07-18] MEDS: COLLAGENASE CLOSTRIDIUM HIST. 30 APPL TUBE TP SCH (09:58)
[2019-07-18] MEDS ORDERED: HYDROcodone/ACETAMINOPHEN 5 ML UDC PO PRN (14:03)
[2019-07-18] MEDS ORDERED: PIPERACILLIN SODIUM/TAZOBACTAM 3.375 GM in DEXTROSE 5 % IN WATER 100 ML IV SCH ×2 (16:00)
[2019-07-18] MEDS ORDERED: ONDANSETRON HCL/PF 2 MG/ML VIAL IV PRN (16:46)
[2019-07-18] MEDS ORDERED: BISACODYL 10 MG SUPP.RECT RC PRN (16:46)
[2019-07-18] MEDS ORDERED: ALBUTEROL SULFATE/IPRATROPIUM 3 ML NEBU IH PRN (16:46)
[2019-07-18] MEDS ORDERED: CODEINE PHOSPHATE/GUAIFENESIN 5 ML UDC PO PRN (16:46)
[2019-07-18] MEDS ORDERED: LORazepam 2 MG/ML DISP.SYRIN IV PRN (16:46)
--- NOTE | 2019-07-18 16:56 | PN ---
Progess Note - Interim Date: 07/18/19 Time: 16:53 Narrative: 07/18/19 16:53 Discussed case with family about poor prognosis of their father's condition- 2 daughters and the son with POA- they decided to finally make him hospice care with comfort care medications only. They want the antibiotics stopped.
[2019-07-18] MEDS: MORPHINE SULFATE 10 MG/0.5 ML SYRINGE PO PRN ×2 (17:06→22:50)
[2019-07-18] MEDS: ATROPINE SULFATE 50 DROP BTL SL PRN (17:08)
[2019-07-19] MEDS: COLLAGENASE CLOSTRIDIUM HIST. 30 APPL TUBE TP SCH (11:34)
[2019-07-19] MEDS: MORPHINE SULFATE 10 MG/0.5 ML SYRINGE PO PRN ×3 (13:39→22:47)
--- NOTE | 2019-07-19 14:34 | PN ---
Subjective - Date and Time Seen Date: 07/19/19 Time: 14:28 Subjective Narrative: patient SHELLEYO x 1. complains he has pain by nodding. he is now on comfort care. Objective - Review of Systems Misc: All systems neg except as marked - unobatainable due to mental status - Vitals Vitals: Last Vital Signs Temp 37.1 C 07/18/19 15:34 Pulse 91 07/18/19 15:34 Resp 24 H 07/18/19 15:34 BP 115/63 07/18/19 15:34 Pulse Ox 100 07/18/19 15:34 - Exam Constitutional: Present: Alert - AAO x 1, Elderly, Thin and frail ENT Exam: Present: hearing grossly normal Neck: Present: limited range of motion. Absent: lymphadenopathy (R), lymphadenopathy (L) Respiratory: Present: decreased breath sounds, crackles, No wheezing Cardiovascular/Chest: Present: regular rate, rhythm, no JVD, no murmur Abdomen: Present: Normal bowel sounds, soft, nontender, nondistended Extremity: Present: pedal edema, other - flexion contracture RUE/RLE, positive tibial exposure distal third RLE Skin Exam: Present: other - multiple decubitus ulcers, Cauti Physician Documentation - Urinary Catheter Management Urethral (Daily) Date of Insertion: 07/15/19 Time of Insertion: 21:25 Assessment/Plan Plan Narrative: The family has made him hospice status and just wants him to be on comfort care. They have also requested to stop his pacemaker. We will continue with current comfort care medications. Magnet was placed over his pacemaker. - Problems/Diagnosis (1) AMS (altered mental status) Problem: Acute (2) SIRS (systemic inflammatory response syndrome) Problem: Acute (3) Sepsis Problem: Acute Qualifiers: Sepsis type: sepsis due to unspecified organism Sepsis acute organ dysfunction status: with acute organ dysfunction Severe sepsis acute organ dysfunction type: encephalopathy Severe sepsis shock status: without septic shock Qualified Code(s): A41.9 - Sepsis, unspecified organism; R65.20 - Severe sepsis without septic shock; G93.40 - Encephalopathy, unspecified (4) Pneumonia Problem: Acute (5) Prolonged immobilization Problem: Acute (6) Cachectic Problem: Acute (7) Pressure sore Problem: Acute Qualifiers: Pressure injury location: contiguous region involving buttock and hip Pressure injury stage: unstageable Laterality: unspecified laterality Qualified Code(s): L89.45 - Pressure ulcer of contiguous site of back, buttock and hip, unstageable (8) Rhabdomyolysis Problem: Ruled-out Qualifiers: Rhabdomyolysis type: non-traumatic Qualified Code(s): M62.82 - Rhabdomyolysis (9) History of CVA (cerebrovascular accident) without residual deficits Problem: Chronic (10) Seizure disorder Problem: Chronic (11) Hypertension Problem: Chronic (12) Hyperlipidemia Problem: Chronic (13) Carotid artery disease Problem: Chronic Qualifiers: Carotid artery disease type: stenosis Laterality: left Qualified Code(s): I65.22 - Occlusion and stenosis of left carotid artery (14) Abdominal aortic aneurysm (AAA) Problem: Acute Qualifiers: Presence of rupture: without rupture Qualified Code(s): I71.4 - Abdominal aortic aneurysm, without rupture (15) Lactic acidosis Problem: Resolved (16) Failure to thrive Problem: Suspected (17) Acute metabolic encephalopathy Problem: Acute (18) Malnutrition Problem: Acute Qualifiers: Malnutrition type: protein-calorie malnutrition Protein-calorie malnutrition severity: severe Qualified Code(s): E43 - Unspecified severe protein-calorie malnutrition
[2019-07-19] MEDS: ATROPINE SULFATE 50 DROP BTL SL PRN (20:23)
[2019-07-20] MEDS: ATROPINE SULFATE 50 DROP BTL SL PRN ×3 (09:35→23:43)
[2019-07-20] MEDS: MORPHINE SULFATE 10 MG/0.5 ML SYRINGE PO PRN ×2 (09:43→19:32)
--- NOTE | 2019-07-20 13:49 | PN ---
Subjective - Date and Time Seen Date: 07/20/19 Time: 09:10 Subjective Narrative: Randy Cuellar is a 79-year-old gentleman who has been found in a very deteriorated condition. He was admitted to the hospital to Dr. Mendosa. He has wounds on his legs with exposed bone. He is very weak and emaciated. He is unchanged from yesterday except maybe a little more alert from when I saw him yesterday. He has no complaints or requests. He will be here through the weekend pending residential placement and will be on hospice I believe. Objective - Review of Systems Generalized/Overall Review: Reports: Weakness, Malaise EENTM: Reports: No Symptoms Reported Respiratory: Reports: No Symptoms Reported Cardiac: Reports: No Symptoms Reported Abdominal: Reports: No Symptoms Reported Genitourinary Symptoms: Reports: No Symptoms Reported Musculoskeletal Complaints: Reports: Other - Open sores with bone exposed on the legs Neurological: Reports: Weakness Endocrine: Reports: Other - Multiple stage IV ulcers - Vitals Vitals: Last Vital Signs Temp 37.1 C 07/18/19 15:34 Pulse 91 07/18/19 15:34 Resp 24 H 07/18/19 15:34 BP 115/63 07/18/19 15:34 Pulse Ox 100 07/18/19 15:34 - Exam Constitutional: Present: Alert, Cooperative, No distress, Somnolent, Elderly, Thin and frail ENT Exam: Present: normal ENT inspection, hearing grossly normal, pharynx normal Neck: Present: non-tender, limited range of motion Breasts: Present: Exam deferred Respiratory: Present: chest non-tender, lungs clear, normal breath sounds, no respiratory distress, no accessory muscle use Cardiovascular/Chest: Present: normal peripheral pulses, regular rate, rhythm, no chest tenderness, no edema, no gallop, no JVD, no murmur, no rub Abdomen: Present: Normal bowel sounds, soft, nontender, nondistended, no rebound tenderness, no hepatospenomegaly, no masses /Rectal: Present: Exam deferred Extremity: Present: normal range of motion, non-tender, normal inspection, no pedal edema, no calf tenderness, normal capillary refill Skin Exam: Present: normal color, warm/dry, no cyanosis Lymphatic: Present: no adenopathy Neurologic: Present: 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, normal cerebellar test, no motor/sensory deficits, alert Appearance: Present: appropriate appearance Eye contact: Present: cooperative Thoughts: Present: normal thought pattern Cauti Physician Documentation - Urinary Catheter Management Urethral (Daily) Date of Insertion: 07/15/19 Time of Insertion: 21:25 Assessment/Plan Plan Narrative: Continue current therapy without change - Problems/Diagnosis (1) Open wounds involving multiple regions of lower extremity Problem: Chronic (2) Cachectic Problem: Chronic (3) AMS (altered mental status) Problem: Acute Qualifiers: Altered mental status type: somnolence Qualified Code(s): R40.0 - Somnolence (4) History of CVA (cerebrovascular accident) without residual deficits Problem: Chronic (5) Failure to thrive Problem: Suspected (6) Acute metabolic encephalopathy Problem: Acute (7) Malnutrition Problem: Chronic Qualifiers: Malnutrition type: protein-calorie malnutrition Protein-calorie malnutrition severity: severe Qualified Code(s): E43 - Unspecified severe p rotein-calorie malnutrition
[2019-07-21] MEDS: ATROPINE SULFATE 50 DROP BTL SL PRN ×6 (02:09→18:50)
[2019-07-21] MEDS: MORPHINE SULFATE 10 MG/0.5 ML SYRINGE PO PRN ×4 (02:12→20:42)
[2019-07-21] MEDS: POLYVINYL ALCOHOL 150 DROP BTL EACHEYE PRN (08:54)
--- NOTE | 2019-07-21 12:20 | PN ---
Subjective - Date and Time Seen Date: 07/21/19 Time: 10:15 Subjective Narrative: Randy has had an uneventful night. He has no complaints or requests this morning. He seems to be such a lonely individual. There is no new lab or x- rays to report. The last was July 17. Nursing is not reporting any other new concerns. Objective - Review of Systems Generalized/Overall Review: Reports: Weakness, Malaise EENTM: Reports: No Symptoms Reported Respiratory: Reports: No Symptoms Reported Cardiac: Reports: No Symptoms Reported Abdominal: Reports: No Symptoms Reported Genitourinary Symptoms: Reports: No Symptoms Reported Musculoskeletal Complaints: Reports: Other - Recent rhabdomyolysis from being on the floor too long Neurological: Reports: No Symptoms Reported Skin: Reports: Other - Multiple skin wounds on the lower extremities with bone exposed in 2 places Endocrine: Reports: No Symptoms Reported Misc: All systems neg except as marked - Vitals Vitals: Last Vital Signs Temp 37.1 C 07/18/19 15:34 Pulse 91 07/18/19 15:34 Resp 24 H 07/18/19 15:34 BP 115/63 07/18/19 15:34 Pulse Ox 100 07/18/19 15:34 - Exam Constitutional: Present: Alert, Elderly, Thin and frail ENT Exam: Present: normal ENT inspection, hearing grossly normal, pharynx normal Neck: Present: non-tender, limited range of motion Respiratory: Present: chest non-tender, lungs clear, normal breath sounds, no respiratory distress, no accessory muscle use Cardiovascular/Chest: Present: normal peripheral pulses, regular rate, rhythm, no chest tenderness, no edema, no gallop, no JVD, no murmur, no rub Abdomen: Present: Normal bowel sounds, soft, nontender, nondistended, no rebound tenderness, no hepatospenomegaly, no masses /Rectal: Present: Exam deferred Extremity: Present: other - Multiple leg sores Skin Exam: Present: normal color, warm/dry, other - Multiple leg sores Lymphatic: Present: no adenopathy Neurologic: Present: 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 Absent: good eye contact, normal speech Thoughts: Present: normal thought pattern, no apparent hallucination Cauti Physician Documentation - Urinary Catheter Management Urethral (Daily) Date of Insertion: 07/15/19 Time of Insertion: 21:25 Assessment/Plan Plan Narrative: 1. CBC, CMP, chest x-ray tomorrow morning 2. Add Prozac 10 mg 1 p.o. daily for 6 days and then 20 mg daily thereafter - Problems/Diagnosis (1) Open wounds involving multiple regions of lower extremity Problem: Chronic (2) Cachectic Problem: Chronic (3) AMS (altered mental status) Problem: Acute Qualifiers: Altered mental status type: somnolence Qualified Code(s): R40.0 - Somnolence (4) History of CVA (cerebrovascular accident) without residual deficits Problem: Chronic (5) Failure to thrive Problem: Suspected (6) Acute metabolic encephalopathy Problem: Acute (7) Malnutrition Problem: Chronic Qualifiers: Malnutrition type: protein-calorie malnutrition Protein-calorie malnutrition severity: severe Qualified Code(s): E43 - Unspecified severe protein-calorie malnutrition
[2019-07-21] MEDS ORDERED: FLUoxetine HCL 10 MG CAPSULE PO SCH (12:30)
[2019-07-22] MEDS: ATROPINE SULFATE 50 DROP BTL SL PRN ×6 (01:44→23:37)
[2019-07-22] MEDS: MORPHINE SULFATE 10 MG/0.5 ML SYRINGE PO PRN ×4 (01:49→23:36)
[2019-07-22] MEDS: POLYVINYL ALCOHOL 150 DROP BTL EACHEYE PRN (01:52)
--- NOTE | 2019-07-22 12:30 | PN ---
Subjective - Date and Time Seen Date: 07/22/19 Time: 12:23 Subjective Narrative: Patient was sleeping but open his eyes with his name call. Did not respond to any of my questions. Objective - Review of Systems Misc: All systems neg except as marked - unobtainable due to mental state - Vitals Vitals: Last Vital Signs Temp 37.1 C 07/18/19 15:34 Pulse 91 07/18/19 15:34 Resp 24 H 07/18/19 15:34 BP 115/63 07/18/19 15:34 Pulse Ox 100 07/18/19 15:34 - Exam Constitutional: Present: Alert - AAo x 1, Elderly, Thin and frail ENT Exam: Present: hearing grossly normal Neck: Present: limited range of motion. Absent: lymphadenopathy (R), lymphadenopathy (L) Respiratory: Present: decreased breath sounds, crackles, rhonchi Cardiovascular/Chest: Present: regular rate, rhythm, no JVD, no murmur Abdomen: Present: Normal bowel sounds, soft, nontender, nondistended Extremity: Present: no calf tenderness, other - RUE/RLE flexion contractures Skin Exam: Present: other - multiple decubiti ulcers- polymicrobal infection Cauti Physician Documentation - Urinary Catheter Management Urethral (Daily) Date of Insertion: 07/15/19 Time of Insertion: 21:25 Assessment/Plan Plan Narrative: Randy Cuellar was admitted for altered mental status, sepsis, multiple decubiti ulcers growing polymicrobial organisms, right upper extremity and right lower extremity flexion contractures who is now hospice care and just on comfort measures. We will continue present management and current medications. - Problems/Diagnosis (1) AMS (altered mental status) Problem: Acute Qualifiers: Altered mental status type: somnolence Qualified Code(s): R40.0 - Somnolence (2) SIRS (systemic inflammatory response syndrome) Problem: Acute (3) Sepsis Problem: Acute Qualifiers: Sepsis type: sepsis due to unspecified organism Sepsis acute organ dysfunction status: with acute organ dysfunction Severe sepsis acute organ dysfunction type: encephalopathy Severe sepsis shock status: without septic shock Qualified Code(s): A41.9 - Sepsis, unspecified organism; R65.20 - Severe sepsis without septic shock; G93.40 - Encephalopathy, unspecified (4) Pneumonia Problem: Acute (5) Prolonged immobilization Problem: Acute (6) Cachectic Problem: Chronic (7) Pressure sore Problem: Acute Qualifiers: Pressure injury location: contiguous region involving buttock and hip Pressure injury stage: unstageable Laterality: unspecified laterality Qualified Code(s): L89.45 - Pressure ulcer of contiguous site of back, buttock and hip, unstageable (8) Rhabdomyolysis Problem: Ruled-out Qualifiers: Rhabdomyolysis type: non-traumatic Qualified Code(s): M62.82 - Rhabdomyolysis (9) History of CVA (cerebrovascular accident) without residual deficits Problem: Chronic (10) Seizure disorder Problem: Chronic (11) Hypertension Problem: Chronic (12) Hyperlipidemia Problem: Chronic (13) Carotid artery disease Problem: Chronic Qualifiers: Carotid artery disease type: stenosis Laterality: left Qualified Code(s): I65.22 - Occlusion and stenosis of left carotid artery (14) Abdominal aortic aneurysm (AAA) Problem: Acute Qualifiers: Presence of rupture: without rupture Qualified Code(s): I71.4 - Abdominal aortic aneurysm, without rupture (15) Lactic acidosis Problem: Resolved (16) Failure to thrive Problem: Suspected (17) Acute metabolic encephalopathy Problem: Acute (18) Malnutrition Problem: Chronic Qualifiers: Malnutrition type: protein-calorie malnutrition Protein-calorie malnutrition severity: severe Qualified Code(s): E43 - Unspecified severe protein-calorie malnutrition
[2019-07-23] MEDS: MORPHINE SULFATE 10 MG/0.5 ML SYRINGE PO PRN ×2 (10:02→14:13)
[2019-07-23] MEDS: ATROPINE SULFATE 50 DROP BTL SL PRN ×3 (10:03→23:33)
--- NOTE | 2019-07-23 11:09 | PN ---
Subjective - Date and Time Seen Date: 07/23/19 Time: 11:05 Subjective Narrative: patient awake, looks to you when spoken to but response to questions. Objective - Review of Systems Misc: All systems neg except as marked - unobtainable due to AMS - Vitals Vitals: Last Vital Signs Temp 37.1 C 07/18/19 15:34 Pulse 91 07/18/19 15:34 Resp 24 H 07/18/19 15:34 BP 115/63 07/18/19 15:34 Pulse Ox 100 07/18/19 15:34 - Exam Constitutional: Present: Alert - AAO x 1, Elderly, Thin and frail ENT Exam: Present: hearing grossly normal Neck: Present: supple. Absent: lymphadenopathy (R), lymphadenopathy (L) Respiratory: Present: decreased breath sounds, rhonchi, No wheezing Cardiovascular/Chest: Present: regular rate, rhythm, no JVD, no murmur Abdomen: Present: Normal bowel sounds, soft, nontender, nondistended Extremity: Present: other - RUE/RLE flesion contracture Skin Exam: Present: other - multiple decubiti ulcers with tibial bone exposedon RLE Cauti Physician Documentation - Urinary Catheter Management Urethral (Daily) Date of Insertion: 07/15/19 Time of Insertion: 21:25 Assessment/Plan Plan Narrative: We will continue with present management and current comfort care medications. Awaiting NH placement for continuance of hospice care. - Problems/Diagnosis (1) AMS (altered mental status) Problem: Acute Qualifiers: Altered mental status type: somnolence Qualified Code(s): R40.0 - Somnolence (2) SIRS (systemic inflammatory response syndrome) Problem: Acute (3) Sepsis Problem: Acute Qualifiers: Sepsis type: sepsis due to unspecified organism Sepsis acute organ dysfunction status: with acute organ dysfunction Severe sepsis acute organ dysfunction type: encephalopathy Severe sepsis shock status: without septic shock Qualified Code(s): A41.9 - Sepsis, unspecified organism; R65.20 - Severe sepsis without septic shock; G93.40 - Encephalopathy, unspecified (4) Pneumonia Problem: Acute (5) Prolonged immobilization Problem: Acute (6) Cachectic Problem: Chronic (7) Pressure sore Problem: Acute Qualifiers: Pressure injury location: contiguous region involving buttock and hip Pressure injury stage: unstageable Laterality: unspecified laterality Qualified Code(s): L89.45 - Pressure ulcer of contiguous site of back, buttock and hip, unstageable (8) Rhabdomyolysis Problem: Ruled-out Qualifiers: Rhabdomyolysis type: non-traumatic Qualified Code(s): M62.82 - Rhabdomyolysis (9) History of CVA (cerebrovascular accident) without residual deficits Problem: Chronic (10) Seizure disorder Problem: Chronic (11) Hypertension Problem: Chronic (12) Hyperlipidemia Problem: Chronic (13) Carotid artery disease Problem: Chronic Qualifiers: Carotid artery disease type: stenosis Laterality: left Qualified Code(s): I65.22 - Occlusion and stenosis of left carotid artery (14) Abdominal aortic aneurysm (AAA) Problem: Acute Qualifiers: Presence of rupture: without rupture Qualified Code(s): I71.4 - Abdominal aortic aneurysm, without rupture (15) Lactic acidosis Problem: Resolved (16) Failure to thrive Problem: Suspected (17) Acute metabolic encephalopathy Problem: Acute (18) Malnutrition Problem: Chronic Qualifiers: Malnutrition type: protein-calorie malnutrition Protein-calorie malnutrition severity: severe Qualified Code(s): E43 - Unspecified severe protein-calorie malnutrition
[2019-07-23 18:52] VITALS: BP 110/60
[2019-07-24] MEDS: ATROPINE SULFATE 50 DROP BTL SL PRN ×4 (03:43→22:37)
[2019-07-24] MEDS: MORPHINE SULFATE 10 MG/0.5 ML SYRINGE PO PRN ×3 (10:38→22:37)
--- NOTE | 2019-07-24 18:21 | PN ---
Subjective - Date and Time Seen Date: 07/24/19 Time: 18:16 Subjective Narrative: status quo. he did answer one of my question. awaiting NH placement. Objective - Review of Systems Misc: All systems neg except as marked - unreliable due mental state - Vitals Vitals: Last Vital Signs Temp 37 C 07/23/19 18:51 Pulse 100 07/23/19 18:51 Resp 24 H 07/23/19 18:51 BP 110/60 07/23/19 18:51 Pulse Ox 95 07/23/19 18:51 - Exam Constitutional: Present: Alert - AAIO x 1, Elderly, Thin and frail ENT Exam: Present: hearing grossly normal Neck: Present: limited range of motion. Absent: lymphadenopathy (R), lymphadenopathy (L) Respiratory: Present: decreased breath sounds, crackles, rhonchi, wheezing - occasional Cardiovascular/Chest: Present: regular rate, rhythm, no JVD, no murmur Abdomen: Present: Normal bowel sounds, soft, nontender, nondistended Extremity: Present: other - positive RUE/RLE flexion contractures, exposed tibial bone , RLE Skin Exam: Present: other - multiple decubiti ulcers Cauti Physician Documentation - Urinary Catheter Management Urethral (Daily) Date of Insertion: 07/15/19 Time of Insertion: 21:25 Assessment/Plan Plan Narrative: Continue with present hospice management and comfort cares. - Problems/Diagnosis (1) AMS (altered mental status) Problem: Acute Qualifiers: Altered mental status type: disorientation Qualified Code(s): R41.0 - Disorientation, unspecified (2) SIRS (systemic inflammatory response syndrome) Problem: Acute (3) Sepsis Problem: Acute Qualifiers: Sepsis type: sepsis due to unspecified organism Sepsis acute organ dysfunction status: with acute organ dysfunction Severe sepsis acute organ dysfunction type: encephalopathy Severe sepsis shock status: without septic shock Qualified Code(s): A41.9 - Sepsis, unspecified organism; R65.20 - Severe sepsis without septic shock; G93.40 - Encephalopathy, unspecified (4) Pneumonia Problem: Acute (5) Prolonged immobilization Problem: Acute (6) Cachectic Problem: Chronic (7) Pressure sore Problem: Acute Qualifiers: Pressure injury location: contiguous region involving buttock and hip Pressure injury stage: unstageable Laterality: unspecified laterality Qualified Code(s): L89.45 - Pressure ulcer of contiguous site of back, buttock and hip, unstageable (8) Rhabdomyolysis Problem: Ruled-out Qualifiers: Rhabdomyolysis type: non-traumatic Qualified Code(s): M62.82 - Rhabdomyolysis (9) History of CVA (cerebrovascular accident) without residual deficits Problem: Chronic (10) Seizure disorder Problem: Chronic (11) Hypertension Problem: Chronic (12) Hyperlipidemia Problem: Chronic (13) Carotid artery disease Problem: Chronic Qualifiers: Carotid artery disease type: stenosis Laterality: left Qualified Code(s): I65.22 - Occlusion and stenosis of left carotid artery (14) Abdominal aortic aneurysm (AAA) Problem: Acute Qualifiers: Presence of rupture: without rupture Qualified Code(s): I71.4 - Abdominal aortic aneurysm, without rupture (15) Lactic acidosis Problem: Resolved (16) Failure to thrive Problem: Suspected (17) Acute metabolic encephalopathy Problem: Acute (18) Malnutrition Problem: Chronic Qualifiers: Malnutrition type: protein-calorie malnutrition Protein-calorie malnutrition severity: severe Qualified Code(s): E43 - Unspecified severe protein-calorie malnutrition
[2019-07-25] MEDS: ATROPINE SULFATE 50 DROP BTL SL PRN ×2 (02:03→10:01)
[2019-07-25] MEDS: MORPHINE SULFATE 10 MG/0.5 ML SYRINGE PO PRN ×2 (02:03→10:00)
--- NOTE | 2019-07-25 08:36 | DS ---
(1) AMS (altered mental status) Problem: Acute Qualifiers: Altered mental status type: transient alteration of awareness Qualified Code(s): R40.4 - Transient alteration of awareness (2) SIRS (systemic inflammatory response syndrome) Problem: Acute (3) Sepsis Problem: Resolved Qualifiers: Sepsis type: sepsis due to unspecified organism Sepsis acute organ dys function status: with acute organ dysfunction Severe sepsis acute organ dysfunction type: encephalopathy Severe sepsis shock status: without septic shock Qualified Code(s): A41.9 - Sepsis, unspecified organism; R65.20 - Severe sepsis without septic shock; G93.40 - Encephalopathy, unspecified (4) Pneumonia Problem: Suspected (5) Prolonged immobilization Problem: Acute (6) Cachectic Problem: Chronic (7) Pressure sore Problem: Chronic Qualifiers: Pressure injury location: contiguous region involving buttock and hip Pressure injury stage: unstageable Laterality: unspecified laterality Qualified Code(s): L89.45 - Pressure ulcer of contiguous site of back, buttock and hip, unstageable (8) Rhabdomyolysis Problem: Ruled-out Qualifiers: Rhabdomyolysis type: non-traumatic Qualified Code(s): M62.82 - Rhabdomyolysis (9) History of CVA (cerebrovascular accident) without residual deficits Problem: Chronic (10) Seizure disorder Problem: Chronic (11) Hypertension Problem: Chronic (12) Hyperlipidemia Problem: Chronic (13) Carotid artery disease Problem: Chronic Qualifiers: Carotid artery disease type: stenosis Laterality: left Qualified Code(s): I65.22 - Occlusion and stenosis of left carotid artery (14) Abdominal aortic aneurysm (AAA) Problem: Chronic Qualifiers: Presence of rupture: without rupture Qualified Code(s): I71.4 - Abdominal aortic aneurysm, without rupture (15) Lactic acidosis Problem: Resolved (16) Failure to thrive Problem: Suspected (17) Acute metabolic encephalopathy Problem: Acute (18) Malnutrition Problem: Chronic Qualifiers: Malnutrition type: protein-calorie malnutrition Protein-calorie malnutrition severity: severe Qualified Code(s): E43 - Unspecified severe protein-calorie malnutrition Date of Discharge:: 07/25/19 Description of Stay: Randy Huynh is a 79-year-old white male with past medical history of hypertension, carotid artery disease, CVA, seizure disorder, hyperlipidemia, who was admitted on 07/16/2019 because of confusion. I was not able to get any history from Randy. My history was based on the emergency room physicians notes who got it from his son- "6 weeks prior to admission the patient had a fall and the son had been lifting him and in and out of his wheelchair to his bed. According to the son the right side of his body has been unusable for some time but got worse during the last weeks after his fall. The son has been rotating him from [id number] once to twice a day. Over time the right side has been more contracted in his right arm and right leg. The family has been discussing their father's care and they were thinking of hospice". I have not seen this patient since 2-1/2 years ago as he was lost to follow-up. The patient in the emergency room was found to have a flexion contracture of his right upper extremity and right lower extremity with multiple decubiti ulcers stage I to stage III and the worst one being on his right legwhich could be stage IV. His tibial bone was exposed. He was severely malnourished. He a CT scan of his abdomen and pelvis showed no acute had elevated white blood cell count, CK, lactic acid, d-dimer. He was tachycardic, tachypneic, and had low blood pressures in the 90"s. He was treated as sepsis and started on IV fluids, IV Zosyn, IV vancomycin. CT scan of his abdomen showed no acute intra-abdominal findings except for an abdominal aortic aneurysm of 4.1 x 4[address] larry ogram was done and it showed no evidence of pulmonary embolism, minimal left pleural effusion with atelectasis versus beginning pneumonia. Emergency room physician contacted [facility] for this patient.Wound clinic was consulted and the debrided his ulcers . After discussion with the family and the son who had the POA, they decided to make the patient hospice care. His IV antibiotics were stopped and was put on comfort medications only. Procedures Performed: see notes below - Bedside Debridement of Pressure Necrotic Ulcer , left hip List Procedures: Debridement Results and Findings: Lab Pending Results 07/15/19 20:57: WBC 21.9 H, RBC 3.50 L, Hgb 9.2 L, Hct 29.8 L, MCV 85.1, MCH 26.3 L, MCHC 30.9 L, RDW 16.0 H, Plt Count 284, MPV 10.4, Immature Gran % (Auto) 0.60 H, Immature Gran # (Auto) 0.14 H, Neutrophils % 85.2 H, Lymphocytes % 9.3 L, Monocytes % 4.6, Eosinophils % 0.1, Basophils % 0.2, Nucleated RBC % 0.0, Neutrophils # 18.6 H, Lymphocytes # 2.03, Monocytes # 1.0, Eosinophils # 0.0, Absolute Basophils 0.0 07/15/19 20:57: Sodium 130 L, Plasma Sodium 130, Potassium 5.0 H, Chloride 99, Carbon Dioxide 19.1 L, Anion Gap 16.9 H, BUN 18, Creatinine 0.81, Est GFR (Non- Af Amer) 98 D, BUN/Creatinine Ratio 22.2 H, Random Glucose 113 H, Calcium 8.0, Calcium Adj for Albumin 9.8, Total Bilirubin 0.4, AST 51 H, ALT 15 L, Alkaline Phosphatase 111, Creatine Kinase 521 H, Troponin I Less than 0.017, C-Reactive Prot, Quant 20.2 H, Total Protein 5.6 L, Albumin 1.4 L 07/15/19 20:57: Lactic Acid, Venous 6.9 H* 07/15/19 20:57: PT 14.1 H, INR (Anticoag Therapy) 1.44 H 07/15/19 20:57: ESR 71 H 07/15/19 20:57: D-Dimer 5.85 H 07/15/19 21:27: Urine Color Yellow, Urine Appearance Slightly cloudy, Urine pH 6.0, Ur Specific Chavies 1.020, Urine Protein 15 H, Urine Glucose (UA) Negative, Urine Ketones Negative, Urine Blood 50 H, Urine Nitrate Negative, Urine Bilirubin Negative, Prot Sulfosalicylic Acd Negative, Urine Urobilinogen 2.0 H, Ur Leukocyte Esterase Negative, Urine RBC 0-5, Urine WBC None seen, Ur Epithelial Cells None seen, Amorphous Sediment Few - 1+, Urine Bacteria 1+ H, Urine Culture Comments Culture to follow 07/15/19 23:00: Lactic Acid, Venous 4.5 H* 07/16/19 07:00: Creatinine 0.85 07/16/19 07:58: Lactic Acid, Venous 1.8 07/17/19 08:15: WBC 14.2 H D, RBC 3.42 L, Hgb 8.9 L, Hct 28.6 L, MCV 83.6, MCH 26.0 L, MCHC 31.1 L, RDW 15.6 H, Plt Count 326, MPV 10.2, Immature Gran % (Auto) 0.60 H, Immature Gran # (Auto) 0.09 H, Neutrophils % 85.4 H, Lymphocytes % 9.9 L, Monocytes % 3.2, Eosinophils % 0.8, Basophils % 0.1, Nucleated RBC % 0.0, Neutrophils # 12.1 H, Lymphocytes # 1.40 L, Monocytes # 0.5, Eosinophils # 0.1, Absolute Basophils 0.0 07/17/19 08:15: Sodium 132, Plasma Sodium 132, Potassium 3.6 D, Chloride 102, Carbon Dioxide 23.5 L, Anion Gap 10.1, BUN 15, Creatinine 0.81, Est GFR (Non-Af Amer) 98, BUN/Creatinine Ratio 18.5, Random Glucose 110, Calcium 7.6 L, Creatine Kinase 258 Discharge Location: [facility] Disposition: [facility] Home Health Agency: [facility] Health Condition: Poor Level of Care: ICF Discharge Activity: Activity as tolerated Discharge Diet: Other - Pureed diet Referrals: Juany Mendosa MD [Primary Care Provider] - Additional Patient Instructions (free text): to follow at [facility] for hospice orders. [facility] to follow at the [facility]. Prescriptions (Any new or edited meds): Polyvinyl Alcohol [Artificial Tears] 2 drp EACHEYE PRN PRN #1 btl PRN Reason: Dry Eye(S) Transmission Status: Pending to [facility] Lorazepam [Ativan Intensol] 2 mg PO QID PRN #30 ml PRN Reason: Anxiety Prescription Printed Bisacodyl [Dulcolax Suppository] 10 mg RC PRN PRN #10 supp.rect PRN Reason: Constipation Transmission Status: Pending to [facility] Atropine Sulfate [Isopto Atropine 1%] 2 drp SUBLINGUAL Q2H PRN #1 btl PRN Reason: secretions Transmission Status: Pending to [facility] Morphine Sulfate [Morphine Sulfate Conc. Oral Solution] 5 mg PO Q2H PRN #30 ml PRN Reason: Severe Pain (Pain Scale 7-10) Prescription Printed Ondansetron [Zofran Odt] 4 mg PO Q6H PRN #20 tab PRN Reason: Nausea Transmission Status: Pending to [facility] Complete Home Medications List: Complete Home Medication List: Atropine Sulfate [Isopto Atropine 1%] 2 drp SUBLINGUAL Q2H PRN #1 btl 07/25/19 Bisacodyl [Dulcolax Suppository] 10 mg RC PRN PRN #10 supp.rect 07/25/19 Lorazepam [Ativan Intensol] 2 mg PO QID PRN #30 ml 07/25/19 Morphine Sulfate [Morphine Sulfate Conc. Oral Solution] 5 mg PO Q2H PRN #30 ml 1 09/25/18 Ondansetron [Zofran Odt] 4 mg PO Q6H PRN #20 tab 07/25/19 Polyvinyl Alcohol [Artificial Tears] 2 drp EACHEYE PRN PRN #1 btl 07/25/19
== END 2019-07-25 10:30 | disposition hospice, home (50) | DRG 871 ==
LOC: ER 19:15 → MS 07-16 01:15
PROVIDERS: ADMIT Family Medicine; ATTEND Internal Medicine
CPT/HCPCS: 36415; 71275; 72170; 73020; 73070; 73100; 73560; 73600; 74176; 80048; 80053; 81001; 82550; 82565; 83605; 84484; 85025; 85379; 85610; 85652; 86140; 87040; 87070; 87077; 87086; 87186; 93005; 96361; 96365; 96375; 99285; J2405; Q9967